=== PATIENT | male | born 1985 | race Caucasian/White ===

== ENCOUNTER 2024-01-08 12:16 | Emergency (ER) | payer BC, SELFPAY ==
[2024-01-08 12:26] VITALS: BP 138/83
[2024-01-08 12:50] LABS: % Basophils 0.9 % (0-2); % Eosinophils 1.1 % (0-6); % Immature Granulocytes 0.4 % (0-0.5); % Lymphocytes 13.5 % (20.5-51.1); % Monocytes 10.4 % (1.7-9.3); % Neutrophils 73.7 % (42.2-75.2); Absolute Basophils 0.1 10^3/uL (0-0.2); Absolute Eosinophils 0.1 10^3/uL (0-0.7); Absolute Lymphocytes 1.3 10^3/uL (1.2-3.4); Absolute Neutrophils 7.2 10^3/uL (1.4-6.5); Hematocrit 46.4 % (39.0-52.0); Hemoglobin 16.5 g/dL (13.0-18.0); Mean Corp Hgb Conc. 35.6 g/dL (33.0-37.0); Mean Corpuscular Hgb 32.6 pg (27.0-31.0); Mean Corpuscular Volume 91.7 fL (80.0-94.0); Mean Platelet Volume 9.8 fL (7.4-10.4); Nucleated Red Blood Cells % 0 % (-); Platelet Count 198 10^3/uL (130-400); Red Blood Cell Count 5.06 10^6/uL (4.70-6.10); Red Cell Dist. Width 13.9 % (11.5-14.5); White Blood Cell Count 9.8 10^3/uL (4.8-10.8)
[2024-01-08 13:08] LABS: ALT (SGPT) 16 U/L (0-50); AST (SGOT) 19 U/L (17-59); Albumin 4.4 g/dl (3.5-5.0); Alkaline Phosphatase 56 U/L (38-126); Blood Urea Nitrogen 18 mg/dl (9-20); Carbon Dioxide 26 mmol/L (22-30); Chloride 98 mmol/L (98-107); Glucose 133 mg/dl (70-99); Potassium 4.3 mmol/L (3.5-5.1); Sodium 136 mmol/L (135-145); Total Bilirubin 0.8 mg/dl (0.2-1.3); eGFR > 60.00
--- NOTE | 2024-01-08 16:05 | ED.SKININJ ---
Addendum entered and electronically signed by Flower Peacock PA-C 01/10/24 14:37:
group g strep culture
pt called back and he is doing better, having some itching and dry skin but swellin an dpain better
will change him to augmentin
stop bactrim
return preautison.
Original Note:
HPI-Injury
General
Chief Complaint: Skin Problem
Source: patient
Exam Limitations: none
Time Seen by Provider: 01/08/24 15:43
Nursing documentation reviewed up to this point in time: agreed with
Travel History
Have you had any contact with someone who has COVID-19?: No
Do you have any symptoms of coronavirus? Fever > 100 degrees, chills, cough, shortness of breath, sore throat, loss of taste or smell, muscle aches, or headache?: No
History of Present Illness-Injury
Is this injury a work related problem?: No
Is pt an associate of [facility]?: No
Initial Injury comments:
Patient states he felt a pimple on posterior right earlobe. States he tried to pop it without success. States since then his earlobe has gotten progressively more red painful and swollen. Brought self to ED for eval.
Past History
Past History
ED Past Medical History: None
ED Past Surgical History: None
Review of Systems
Review of Systems
Allergies reviewed?: Yes
All Other Systems: ROS reviewed and negative except as documented in HPI and ROS
Constitutional: Reports no symptoms
EENT: Reports no symptoms
Respiratory: Reports no symptoms
Cardiac: Reports no symptoms
ABD/GI: Reports no symptoms
: Reports no symptoms
Musculoskeletal: Reports no symptoms
Skin: Reports other (small abscess right posterior earlobe)
Neurological: Reports no symptoms
Psychiatric: Reports no symptoms
Skin Exam
Abscess
right posterior earlobe:
Description of abscess: fluctuant
Surrounding skin:: inflammed at abscess site
Phy Exam
General Physical Exam
General Presentation: well appearing and no apparent distress
General age: appears stated age
General Skin: warm and dry
General Habitus: normal
General Mental: alert
Musculoskeletal Exam
Musculoskeletal Exam: full ROM and neuro vasc intact
Skin Exam
Skin Exam: normal color, warm/dry and no rash
Psychiatric Exam
Psychiatric Exam: normal mood/affect
Course
Orders/Labs/Results
Orders:
Orders
01/08/24 12:30
Complete Blood Count/With Diff Urgent
Comprehensive Metabolic Panel Urgent
01/08/24 12:33
CT Neck With Iv Contrast Urgent
Reason For Exam: abcess behind the right ear/pain radiating to neck
01/08/24 16:02
Sulfamethox./Trimethoprim Ds [Bactrim Ds 800 mg/160 mg] 1 tablet PO NOW STA
01/08/24 17:02
Wound Culture [Wound/Abscess/Other Culture] Urgent
ERICKA Source: Abscess
Specimen Description:
Date Specimen was Collected: 01/08/24
Time Specimen was Collected: 16:32
Abnormal Lab Results
01/08/24
12:30
MCH 32.6 H pg
(27.0-31.0)
Absolute Neuts (auto) 7.2 H 10^3/uL
(1.4-6.5)
Absolute Monos (auto) 1.0 H 10^3/uL
(0.1-0.6)
Lymphocytes % 13.5 L %
(20.5-51.1)
Monocytes % 10.4 H %
(1.7-9.3)
Glucose 133 H mg/dl
(70-99)
01/08/24 12:30
01/08/24 12:30
Vital Signs
Initial and Last Documented VS:
Initial Vital Signs
Temp Pulse Resp BP Pulse Ox
99.1 F 95 17 138/83 98
01/08/24 12:26 01/08/24 12:26 01/08/24 12:26 01/08/24 12:26 01/08/24 12:26
Last Documented Vital Signs
Temp Pulse Resp BP Pulse Ox
98.0 F 89 18 134/84 97
01/08/24 17:10 01/08/24 17:10 01/08/24 17:10 01/08/24 17:10 01/08/24 17:10
Procedures
Incision/Drainage/Joint Aspiration
Right posterior earlobe:
Anethesia: 1% Lidocaine
Preparation: cleaned with Betadine
Type of procedure: incise and drain
Nature of site: abscess
Description of abscess: less than 3cm
Loculations broken up: Yes
How much fluid was obtained?: small amount
Fluid description: purulent
Treatment: left open for drainage and antibiotics started
*Critical Care Note
Total Time (30-74mins, 75-104mins- exclusive of procedures): Not Applicable
ED Attending Note
-
Portions of this chart may have been created with voice recognition software.� Occasional wrong word or��sound alike� substitutions may have occurred due to the inherent limitations of voice recognition software.
Discharge Plan
Departure
Patient Disposition: Home (Routine Discharge)
Date of Disposition: 01/08/24
Time of Disposition: 16:03
Patient with high blood pressure during this ER visit?: No
Condition: Good
Covid-19: Not Applicable
Discharge Problem:
Abscess of skin
Instructions: Cellulitis (Skin Infection), Adult (DC), Skin Abscess
Prescriptions:
New
sulfamethoxazole-trimethoprim [Bactrim DS] 800-160 mg tablet
1 tab PO BID Qty: 20 0RF
Referrals:
NONE,* [Family Provider] -
Activity Restrictions/Additional Instructions:
Warm compresses to your ear 15-20 minutes at a time, 4-5 times daily. Do not squeeze site. Return to the emergency department immediately for any changes in/worsening of your symptoms.
Interventions
Interventions:
*Risk Screen - Suicide Last Done: 01/08/24 12:26
*General Assessment Last Done: 01/08/24 12:26
*Neglect/Abuse Screening Last Done: 01/08/24 12:26
*ED COVID-19 Vaccine History Last Done: 01/08/24 12:25
*Nursing Disposition Last Done: 01/08/24 17:10
ED-Skin Assessment Last Done: 01/08/24 15:55
Discharge Date and Time
Discharge Date/Time: 01/08/24 17:11
[2024-01-08] MEDS: BACTRIM DS 800 MG/160 MG 1 TABLET PO (16:54)
[2024-01-08 17:10] VITALS: BP 134/84
== END 2024-01-08 17:11 | disposition home or self-care (01) ==
LOC: EMR 12:16
PROVIDERS: Emergency Medicine; EMERGENCY PHYSICIAN Emergency Medicine
DX: H60.01 Abscess of right external ear (principal)
CPT/HCPCS: 99284; 10060; 70491; 80053; 85025; 87070; 87077; 87147; 87205; Q9967